=== PATIENT | male | born 1955 ===

== ENCOUNTER 2023-06-03 15:31 | Emergency (ER) | payer MEDICARE, MEDICAID ==
[~2023-06-03] VITALS: Ht 185.4 cm; Wt 100.0 kg
[2023-06-03 15:40] VITALS: TEMP 97.5
[2023-06-03 16:54] LABS: BASO # 0.1 K/mm3 (0.0-0.2); BASO % 1.4 % (0.0-2.0); EOS # 0.1 K/mm3 (0.0-0.7); EOS % 2.3 % (0.0-4.0); GRAN # 3.5 K/mm3 (1.4-6.5); GRAN % 62.8 % (42.2-75.2); HEMATOCRIT 48.8 % (42.0-52.0); HEMOGLOBIN 16.4 g/dl (13.5-18.0); LYMPH # 1.3 K/mm3 (1.2-3.4); LYMPH % 22.6 % (20.0-51.0); MEAN CELL VOLUME 88 fl (80.0-100.0); MEAN CORPUSCULAR HEMOGLOBIN 29 pg (27-31); MEAN CORPUSCULAR HGB CONC 34 g/dl (33.0-37.0); MEAN PLATELET VOLUME 10.5 fl (7.4-10.4); MONO # 0.6 K/mm3 (0.1-0.6); MONO % 10.5 % (1.7-9.3); PLATELET COUNT 203 K/mm3 (130-400); RED BLOOD COUNT 5.57 M/mm3 (4.20-5.60); REDCELL DISTRIBUTION WIDTH-CV 12.9 % (11.5-14.5)
[2023-06-03 17:07] LABS: ALBUMIN 3.9 gm/dL (3.4-4.8); CALCIUM 9.2 mg/dL (8.4-10.2); CREATININE, serum 0.85 mg/dL (0.72-1.25); POTASSIUM 3.6 mmol/L (3.5-4.5); TOTAL PROTEIN 6.6 gm/dL (6.2-8.1)
[2023-06-03] MEDS ORDERED: BENTYL 10MG10 MG/CAP PO (18:00)
[2023-06-03 18:15] VITALS: BP 146/89; PULSE 84
== END 2023-06-03 18:17 | disposition home or self-care (01) ==
LOC: COL.ER 15:31
PROVIDERS: Physician Assistant
DX: K52.1 Toxic gastroenteritis and colitis (principal); T50.905A Adverse effect of unspecified drugs, medicaments and biological substances, initial encounter